=== PATIENT | male | born 1950 | race African-American/Black ===

== ENCOUNTER 2019-05-09 16:59 | Inpatient (IN) | payer MEDICARE ==
[~2019-05-09] VITALS: Ht 160 cm; Wt 69.0 kg
[2019-05-09 17:17] VITALS: Ht 160 cm; Wt 69.0 kg
--- NOTE | 2019-05-09 17:22 | NUR ---
PT BENITO FROM HOME FOR SUICIDAL IDEATION, PLACED ON A 5150 HOLD FROM [facility]. PT AAOX4, FOLLOWS SIMPLE COMMANDS BUT LIMITS TO ANSWERING QUESTIONS. STATES "I DONT WANT TO TALK, JUST LEAVE ME ALONE FOR A WHILE". PT DOES ADMIT TO TAKING UNKNOWN AMOUNT NUMBER OF PILLS TO HURT HIMSELF. PT DENIES ANY PAIN AT THIS TIME. VSS. PT PLACED IN VIEW OF NURSING STATION, IN LOBBY. SAFETY PRECAUTIONS INTIATED AND WILL CONT TO MONITOR CLOSELY.
--- NOTE | 2019-05-09 17:30 | NUR ---
PT REPORTS HE TOOK APPROX 100 PILLS OF METFORMIN, APPROX 10 PILLS OF GLIPIZIDE, AND UNKNOWN WHETHER HE TOOK LISINOPRIL APPROX 4 HRS STRIP POLISHER. ALSO STATES HE DOES NOT WANT HIS AT BEDSIDE AT THIS TIME.
--- NOTE | 2019-05-09 17:55 | NUR ---
SPOKE TO SHAWN AT POISON CONTROL, METFORNIN/GLUCOPHAGE CONCERN FOR LACTIC ACIDOSIS RECOMMENDS: LACTATE AND CHEM 20 Q6H DELAYED REACTION. OBSERVE FOR 12 HOURS. TREATMENT: FLUIDS FOR ACIDOSIS. DIALYSIS FOR SEVERE ACIDOSIS GLIPIZIDE CONCERN: HYPOGLYCEMIA RECOMMENDS: FINGER STICK Q1H X 8H TREATMENT: FOOD/DRINK/DEXTROSE FOR HYPOGLYCEMIA RECURRENT HYPOGLYCEMIA: OCTREOTIDE 50-100MCG SQ Q6-12H PRN
[2019-05-09 18:12] LABS: BASOPHIL % 0.6 % (0-2); PLATELET COUNT 236 x10^3mcL (130-400); RED CELL DISTRIBUTION WIDTH 16.1 % (11.5-14.5)
--- NOTE | 2019-05-09 18:21 | NUR ---
PT VOMITED UNDIGESTEDD FOOD, AT BEDSIDE. DR UMAÑA INFOMRED AND MEDICATED ORDERED.
[2019-05-09 18:23] LABS: ALKALINE PHOSPHATASE 63 U/L (46-116); ALT/SGPT 35 U/L (16-63); AST/SGOT 24 U/L (15-37); BILIRUBIN TOTAL 0.3 mg/dL (0.20-1.00); CALCIUM 8.5 mg/dL (8.5-10.1); CHLORIDE SERUM 109 mmol/L (98-107); CREATININE SERUM 1.1 mg/dL (0.7-1.3); GFR1 > 60 mL/min; GLUCOSE SERUM 176 mg/dL (74-106); SODIUM SERUM 144 mmol/L (136-145); TOTAL PROTEIN, SERUM 7.4 g/dL (6.4-8.2)
--- NOTE | 2019-05-09 18:48 | NUR ---
PT BACK FROM BATHROOM, STATES OKAY FOR TI BE AT BEDSIDE AT THIS TIME. VSS. IV FLUIDS INFUSAING WELL APUMP.
--- NOTE | 2019-05-09 19:13 | NUR ---
FIRST CONTACT WITH PT, PT RESTING IN BED WITH EYE CLOSED. PT RESPONDS TO VERBAL STIMULI. PT HAS NO COMPLAINTS AT THIS TIME AND IS TELLING JOKES. PT IN FULL VIEW OF NURSING STATION W/ CURTAINS OPEN. PT IS A/O X4. NO ACUTE DISTRESS NOTED.
[2019-05-09 19:28] LABS: UA SPECIFIC GRAVITY 1.015 (1.005-1.035); microscopic required? YES; urine erythrocyte NEGATIVE (NEGATIVE)
[2019-05-09 19:40] LABS: AMPHETAMINE QUAL UR NONE DETECTED (See below)
--- NOTE | 2019-05-09 19:45 | NUR ---
MARAL PTS SPOUSE LEFT HER NUMBER AT [phone] TO CONTACT HER WITH ANY UPDATES.
--- NOTE | 2019-05-09 20:25 | NUR ---
REPORT GIVEN TO JACOB MADRIGAL TO ASSUME CARE OF PT.
[2019-05-09] MEDS ORDERED: ASPIR 8181 MG PO (20:36)
[2019-05-09] MEDS ORDERED: ZESTRIL5 MG PO (20:36)
[2019-05-09] MEDS ORDERED: GLIPIZIDE10 M2 PO (20:36)
[2019-05-09] MEDS ORDERED: METFORMIN HYDR500 M1 PO (20:36)
--- NOTE | 2019-05-09 20:45 | NUR ---
REC'D PT FROM ER VIA GURNEY ACCOMPANIED BY RN AND EMT. PT AMBULATED TO ICU BED SAFELY WITH STEADY GAIT. PT A/O X4, SPEECH CLEAR AND APPROPRIATE. PERRLA NOTED. EENT FREE OF DISCHARGE. RESPS E/U ON ROOM AIR. CHEST RISE EQUAL AND SYMMETRICAL. LUNG SOUNDS DIMINISHED ROCK. DIRECTOR OF RESERVATIONS IN PLACE SHOWING NSR HR 81, BP 116/66 MAP 80. CHEST WALL STABLE. DENIES ANY CP, SYNCOPE, OR DIZZINESS. PULSES PALPABLE AND MODERATE X4 EXTREMITIES. CAP REFILL < 3 SECS. NO EDEMA NOTED. IVF D10 INFUSING @ 50ML/HR. GEN WEAKNESS NOTED. ABLE TO REPOSITION SELF. ABD DISTENDED AND SOFT. BOWEL SOUNDS ACTIVE. C/O NAUSEA AND DIARRHEA. PT VOIDS FREELY WITH URINAL. PT VOIDED 300ML PALE YELLOW URINE. DENIES ANY URINARY SYMPTOMS. NO PENILE BLEEDING/DISCHARGE. NO SCROTAL EDEMA. SKIN INTACT. WARM DRY TO TOUCH. PT ADMITTED FOR OVERDOSE FOR SUICIDAL IDEATION. DENIES ANY SUICIDAL IDEATION AT THIS TIME. CALM AND COOPERATIVE. ROOM IN CLEAR VIEW OF NURSING STATION FOR CLOSE MONITORING. ALL NEEDS MET AT THIS TIME. WILL CONTINUE TO MONITOR.
[2019-05-09 22:12] VITALS: BP 116/66
--- NOTE | 2019-05-09 22:30 | NUR ---
ELECTRICAL TRANSMISSION ENGINEER SHOWS TORSADES WITH HR ELEVATING TO 130S, LASTED ABOUT 12 SECS. PT DENIES ANY CP. PT AWAKE AND ALERT. REPORTED TO DR VILLALOBOS. ORDER GIVEN FOR STAT MAG AND CK LEVEL, STAT EKG.
[2019-05-09 23:18] VITALS: BP 97/52
--- NOTE | 2019-05-09 23:31 | NUR ---
WILLIE FROM POISON CONTROL CALLED, UPDATED ON STATUS, STATES TO ORDER BMP AND LACTIC ACID STAT AND TREND. DR VILLALOBOS MADE AWARE.
--- NOTE | 2019-05-09 23:31 | NUR ---
LAB AT BEDSIDE.
[2019-05-10 00:06] LABS: CALCIUM 7.6 mg/dL (8.5-10.1); CARBON DIOXIDE 15.7 mmol/L (21-32); CREATININE SERUM 1.5 mg/dL (0.7-1.3); MAGNESIUM 1.7 mg/dL (1.8-2.4)
--- NOTE | 2019-05-10 00:10 | NUR ---
PTS BP 88/53 MAP 62, REPORTED TO DR VILLALOBOS, ORDER GIVEN TO GIVE 500ML NS BOLUS.
[2019-05-10 00:19] LABS: POTASSIUM SERUM 6.4 mmol/L (3.5-5.1)
--- NOTE | 2019-05-10 00:19 | NUR ---
REPORTED CRITICAL LAB VALUE LACTIC ACID 12.4, K+ 6.[address] VILLALOBOS. STATES WILL INSERT REMY CATH AND ORDER STAT DIALYSIS.
--- NOTE | 2019-05-10 01:30 | NUR ---
DR VILLALOBOS AND DR SUNSHINE AT BEDSIDE FOR REMY CATH INSERTION. PROCEDURE EXPLAINED TO PT, ALL QUESTIONS AND CONCERNS ADDRESSED. PT SIGNED CONSENT. AWAITING FOR REGIONAL PRODUCTION MANAGER.
--- NOTE | 2019-05-10 01:41 | NUR ---
PT PRE-MEDICATED WITH ATIVAN AND MORPHINE IVP. ULTRASOUND AND DR VILLALOBOS, DR SUNSHINE AT BEDSIDE PREPPING FOR REMY CATH INSERTION.
--- NOTE | 2019-05-10 02:15 | NUR ---
XRAY AT BEDSIDE TO CONFIRM REMY CATH PLACEMENT.
--- NOTE | 2019-05-10 02:29 | NUR ---
DR SUNSHINE STATES REMY CATH IN PLACE, ORDER GIVEN OKAY TO USE REYM CATH.
--- NOTE | 2019-05-10 02:29 | NUR ---
ANGELA FROM [facility] CALLED AT THIS TIME, STATES RN ON THE WAY NOW.
[2019-05-10 03:02] VITALS: BP 101/57
--- NOTE | 2019-05-10 03:45 | NUR ---
DIALYSIS NURSE AT BEDSIDE.
--- NOTE | 2019-05-10 03:58 | NUR ---
BP 136/72 MAP 93, LEVOPHED TURNED OFF AT THIS TIME.
--- NOTE | 2019-05-10 04:00 | NUR ---
DIALYSIS NURSE STATES BLOOD IS NOT FLOWING THROUGH, REMY CATH NEEDS TO ADVANCED FURHTER. DR SUNSHINE CALLED AND MADE AWARE.
--- NOTE | 2019-05-10 04:15 | NUR ---
PT MADE AWARE MILLER CATHETER NEEDS TO BE PLACE FOR ACCURATE INTAKE AND OUTPUT TO MONITOR KIDNEY FUNCTION. PT REFUSED MILLER CATHETER INSERTION. DR VILLALOBOS MADE AWARE.
--- NOTE | 2019-05-10 04:15 | NUR ---
DR SUNSHINE AND DR VILLALOBOS AT BEDSIDE, ADVANCED REMY CATH FURTHER, SUTURED IN PLACE, VERBAL ORDER GIVEN TO ORDER CXR STAT AND VANCO 1GM X1. ORDER NOTED AND CARRIED OUT.
--- NOTE | 2019-05-10 04:30 | NUR ---
XRAY AT BEDSIDE.
--- NOTE | 2019-05-10 04:40 | NUR ---
DR SUNSHINE VIEWED CXRAY, CONFIRMED PLACEMENT OF REMY CATH. OKAY TO USE REMY CATH.
--- NOTE | 2019-05-10 04:45 | NUR ---
DENISE JAMES STARTED DIAYLSIS AT THIS TIME.
--- NOTE | 2019-05-10 05:02 | NUR ---
PT CURRENTLY GETTING DIALYSIS, LOCATION ANALYST RECOMMEND ABG TO BE DRAWN POST DIALYSIS, RN KAITLIN AND HOSPICE LIAISON RISSA MADE AWARE. WILL ENDORSE TO DAYSHIFT ABOUT ABG.
--- NOTE | 2019-05-10 05:48 | NUR ---
REPORTED BS [address]ILLALOBOS, ORDER GIVEN TO INCREASE D10 TO 50ML/HR.
[2019-05-10 07:15] VITALS: BP 124/70
--- NOTE | 2019-05-10 07:15 | NUR ---
PATIENT ORIENTED TO PERSON, PLACE AND TIME. PATIENT DENIES NAUSEA/VOMITING, SHORTNESS OF BREATH, OR PAIN AT THIS TIME. TELE # 8 READS SINUS TACHYCARDIA. REMY CATH TO RI WITH DRESSING INTACT; HEMODIALYSIS IS IN PROGRESS. IV SITE TO RAC AND LFA. D10 IS INFUSING AT 50ML/HR. CALL LIGHT WITHIN REACH. SIDE RAILS UP X3. BED IS AT LOWEST POSITION. ALARM IS ON.
[2019-05-10 08:32] LABS: PLATELET COUNT 156 x10^3mcL (130-400)
[2019-05-10 08:37] LABS: BASOPHIL % 0 % (0-2); RED CELL DISTRIBUTION WIDTH 16.2 % (11.5-14.5)
[2019-05-10 09:22] LABS: CALCIUM 7.4 mg/dL (8.5-10.1); CARBON DIOXIDE 30.2 mmol/L (21-32); CHLORIDE SERUM 100 mmol/L (98-107); CREATININE SERUM 1.1 mg/dL (0.7-1.3); GFR1 > 60 mL/min; GLUCOSE SERUM 78 mg/dL (74-106); PHOSPHOROUS 3.2 mg/dL (2.5-4.9); POTASSIUM SERUM 3.6 mmol/L (3.5-5.1); SODIUM SERUM 143 mmol/L (136-145)
[2019-05-10 09:28] LABS: MAGNESIUM 0.9 mg/dL (1.8-2.4)
--- NOTE | 2019-05-10 09:40 | NUR ---
DR. RICHARDSON AND THE TEAM ARE MAKING ROUND TO SEE THE PATIENT. DR. SOLITARIO WAS NOTIFIED THAT THE PATIENT'S HEMOGLOBIN LEVEL 10.1 FROM LAB DRAWN AT 0805 THIS MORNING. NO FURTHER ORDER RECEIVED AT THIS TIME.
[2019-05-10 11:25] VITALS: BP 115/65
--- NOTE | 2019-05-10 11:44 | NUR ---
POISON CONTROL STAFF-SEPTEMBER CALLED AND PATIENT'S UPDATE PROVIDED TO HER. POISON CONTROL WILL CALL BACK TOMORROW FOR UPDATE, BUT IF ANY INFORMATION NEEDED TO REPORT TO [facility]ISON [facility] PLEASE CALL [phone].
--- NOTE | 2019-05-10 13:09 | NUR ---
SPOKE WITH DR SOLITARIO AND REPORTED MAG 1.9 AND LACTIC ACID 5.8. OKAY TO INFUSE 2ND GRAM OF MAGNESIUM. ENDORSED TO PRIMARY RN KADE.
[2019-05-10 15:30] VITALS: BP 128/71
--- NOTE | 2019-05-10 18:33 | NUR ---
PATIENT IS RESTING IN BED WITH NO DISTRESS NOTED. BS WAS CHECKED EVERY HOUR ORDERED. LAST BS CHECK AT 1810 WAS 159 AFTER PATIENT HAD DINNER. PATIENT DOES NOT HAVE BM THROUGHOUT THE SHIFT.
--- NOTE | 2019-05-10 18:42 | NUR ---
RECEIVED A PHONE CALL FROM HYDRAULIC PRESS SERVICER MIK FROM [facility] FOR PATIENT'S STATUS. UPDATE PROVIDED TO MIK. SHE WANTED TO KNOW IF THE PATIENT WAS STABLE TO BE TRANSFERRED TO [facility]. HER PHONE NUMBER'S [phone].
--- NOTE | 2019-05-10 18:48 | NUR ---
DEEPTHI DAVID WAS NOTIFIED OF THE REQUEST FROM [place] OPEN CLAIMS REPRESENTATIVE. THE OPEN CLAIMS REPRESENTATIVE'S PHONE NUMBER PROVIDED TO THE DOCTOR.
--- NOTE | 2019-05-10 19:00 | NUR ---
RECIEVED REPORT FROM JACOB BRAUN. NURSING UPDATES. POC DISCUSSES. SEE SHIFT ASSESSMENT FOR ASSESSMENT.
--- NOTE | 2019-05-10 19:09 | NUR ---
REPORT GIVEN TO ZENA WILLIS RN.
[2019-05-10 19:50] VITALS: BP 125/72
--- NOTE | 2019-05-10 20:00 | NUR ---
PT DENIES SI. SEEN BY DR VITAL @ BEDSIDE. STATED" IM DEPRESSED, FEELS BAD/SED". HE PANICED SAYING "HAS A PROBLEM W/ HIMSELF." AND LOTS OF STRESS. STATES HE FEELS SAFE. DR VITAL UPDATE RECOMMEND REMAIN ON 5150 HOLD.
--- NOTE | 2019-05-10 22:34 | NUR ---
NOTIFIED DR LACEY OF MISSING S/S HUMULIN REGULAR FOR PT.
[2019-05-10 23:08] VITALS: BP 112/65
--- NOTE | 2019-05-10 23:23 | NUR ---
REMOVED PT 2L NC. PT WAS GETTING AGITATED W/ IT. PT TOLERATED WELL. NO S/S OF RESP DISTRESS. PT NOTED BREATHING "JUST FINE". WILL CONT TO MONITOR.
[2019-05-11] VITALS (9 sets, daily range): BP systolic 107–160; BP diastolic 59–82
--- NOTE | 2019-05-11 00:51 | NUR ---
BS CHECKED 146. CHECKED FOR CHANGE BS CHECKS NOT TILL 0630. NO S/S OF DISTRESS. WILL CONT TO MONITOR.
--- NOTE | 2019-05-11 02:12 | NUR ---
ASSUMED CONTINUITY OF CARE FROM LAZARO JAMES ICU NURS. PT ASLEEP AT THIS TIME. VITAL SIGNS STABLE. NO S/S OF ACUTE DISTRESS.
--- NOTE | 2019-05-11 02:16 | NUR ---
REPORT GIVEN TO JACOB HANSON. NURSING UPDATES. POC DISCUSSED. RELIEVED OF PT DUTIES.
--- NOTE | 2019-05-11 04:31 | NUR ---
USES URINAL FOR BALDDER ELIMINATION. KEPT CLEAN AND DRY. CALL LIGHT WITHIN REACH.
[2019-05-11 05:22] LABS: BASOPHIL % 0.3 % (0-2); PLATELET COUNT 139 x10^3mcL (130-400); RED CELL DISTRIBUTION WIDTH 16.3 % (11.5-14.5)
[2019-05-11 05:34] LABS: CALCIUM 7.1 mg/dL (8.5-10.1); CARBON DIOXIDE 31.2 mmol/L (21-32); CHLORIDE SERUM 104 mmol/L (98-107); CREATININE SERUM 1.2 mg/dL (0.7-1.3); GFR1 > 60 mL/min; GLUCOSE SERUM 189 mg/dL (74-106); MAGNESIUM 2.2 mg/dL (1.8-2.4); PHOSPHOROUS 2.5 mg/dL (2.5-4.9); POTASSIUM SERUM 3.2 mmol/L (3.5-5.1); SODIUM SERUM 140 mmol/L (136-145)
--- NOTE | 2019-05-11 07:10 | NUR ---
BLOOD CJQIE=[id number]/DL, HRI COVERAGE NOT GIVEN PT BADLY REFUSED, EXPALINED THE RISKS/BENEFITS BUT NO AVAIL. TRIED TO CAHNGE LINENS PT CALIMED STILL SLEEPY. WILL ENDORSE TO INCOMING SHIFT. ALL NEEDS ATTNEDED.
--- NOTE | 2019-05-11 07:25 | NUR ---
RECEIVED PT. IN BED A/A/O X3. NO SOB, NO N/V NOTED. PT. DENIES ANY PAIN AT THIS TIME. NS RUNNING AT 125 CC/HR VIA IV SITE AT L FA. IV SITE #2 NOTED TO R AC. TLC CATH. NOTED TO R NECK. PT. STATED THE TLC CATH. TO HIS R NECK WAS USED FOR HIS HEMODIALYSIS ON 05/10/19. PT. DENIES ANY SUICIDAL IDEATION AT THE PRESENT TIME. BED IN LOW POS., CALL LIGHT WITHIN REACH. SIDE RAILS UP X3.
--- NOTE | 2019-05-11 11:00 | NUR ---
IV SITE #1 TO L FA REMOVED DUE TO INFILTRATION
--- NOTE | 2019-05-11 11:30 | NUR ---
BEDSIDE BS = 176. EXPLAINED TO PT. THE NEED FOR REGULAR INSULIN COVERAGE. PT. STATED " I DON'T TAKE INSULIN."
--- NOTE | 2019-05-11 11:32 | NUR ---
RECEIVED A PHONE CALL FROM CHUCK FROM [facility]. CHUCK ASKED TO GIVE HIM AN UPDATE ON PT.'S CONDITION. UPDATE ABOUT PT.'S CONDITION GIVEN TO CHUCK. CHUCK STATED PT.'S CASE WILL BE CLOSED SINCE PT. IS STABLE.
--- NOTE | 2019-05-11 13:29 | NUR ---
IV SITE #2 TO R AC REMOVED DUE TO LEAKING. IVF NS RESUMED AT 125 CC/HR VIA PIG TAIL PORT OF REMY CATH. AT R NECK.
--- NOTE | 2019-05-11 16:04 | NUR ---
BEDSIDE B.S.= 243. ATTEMPTED TO EXPLAIN THE IMPORTANCE OF REGULAR INSULIN COVERAGE TO CONTROL BLOOD SUGAR. PT. STILL INSISTED " I DON'T NEED INSULIN. I'LL TAKE MY MEDS. WHEN I GET HOME."
--- NOTE | 2019-05-11 18:00 | NUR ---
REMAINS IN STABLE CONDITION AT THIS TIME. WILL CONTINUE TO MONITOR.
--- NOTE | 2019-05-11 18:13 | NUR ---
CALLED AND GAVE REPORT TO JACOB ENCARNACION AT DEPT. ALL QUESTIONS AND CONCERNS ADDRESSED.
--- NOTE | 2019-05-11 18:57 | NUR ---
PT. WILL BE TRANSFERRED TO 2N DEPT. WHEN THE SITTER IS AVAILABLE.
--- NOTE | 2019-05-11 19:20 | NUR ---
SPOKE WITH PATIENT'S MARAL AND INFORMED HER THAT PATIENT IS BEING TRANSFERRED TO ROOM 239A.
--- NOTE | 2019-05-11 19:27 | NUR ---
PT. IS BEING TRANSFERRED TO DEPT. (ROOM 239 A). ALL BELONGINGS SENT WITH PT. UPON TRANSFER. SITTER AT BEDSIDE.
--- NOTE | 2019-05-11 20:05 | NUR ---
RECEIVED PT FROM ICU, NO ACUTE DISTRESS. A/O X4. TELE #20 SHOWING SINUS RHYTHM, DENIES CHEST PAIN. PULSES PALPABLE IN ALL EXTREMITIES, NO EDEMA NOTED. LUNG SOUNDS CTA BILATERALLY, DENIES SOB. BOWEL SOUNDS ACTIVE, LAST BM 05/09/19. VOIDING WELL. AMY ALBERTO CATH, CDI. HD ON 05/10/19. AMBULATORY. SKIN INTACT. PT STATES FEELINGS OF DEPRESSION, DENIES THOUGHTS OF HURTING SELF, CALM AND COOPERATIVE AT THIS TIME. BED IN LOWEST POSITION, SIDE RAILS UP X2, CALL LIGHT WITHIN REACH, SITTER AT BEDSIDE. WILL CONTINUE TO MONITOR.
--- NOTE | 2019-05-11 23:02 | NUR ---
PT REFUSING 2100 INSULIN COVERAGE FOR BLOOD GLUCOSE OF 236, PT STATES HE WILL BE WILLING TO HAVE INSULIN COVERAGE IF 0630 ACCUCHECK REQUIRES. CURRENTLY RESTING IN BED, NO ACUTE DISTRESS. SITTER AT BEDSIDE. WILL CONTINUE TO MONITOR.
--- NOTE | 2019-05-12 06:26 | NUR ---
PT SLEPT PERIODICALLY THROUGHOUT NIGHT, C/O BACK PAIN 12/26, DR SUNSHINE INFORMED. NO SIGNIFICANT CHANGES. IV PATENT AND INTACT. BED IN LOWEST POSITION, SIDE RAILS UP X2, CALL LIGHT WITHIN REACH, SITTER AT BEDSIDE. WILL ENDORSE CARE TO ONCOMING NURSE.
--- NOTE | 2019-05-12 07:15 | NUR ---
RECEIVED REPORT FROM NIGHT NURSE PATIENT LYING IN BED ASLEEP BUT AROUSABLE. IJ PATENT AND INFUSING. ASSESSMENT COMPLETE. NO S/S OF RESPIRATORY DISTRESS CHEST RISE EQUAL AND UNLABORED. 98% ON RA. NO S/S OF CHEST PAIN. A%O X4 SPEECH IS CLEAR. ALL NEEDS ATTENDED TO AT THIS TIME. BED IN LOWEST POSITION CALL LIGHT WITHIN REACH. WILL CONTINUE TO MONITOR.
[2019-05-12 07:59] LABS: BASOPHIL % 0.3 % (0-2); PLATELET COUNT 131 x10^3mcL (130-400)
[2019-05-12 08:05] LABS: CALCIUM 7.2 mg/dL (8.5-10.1); CARBON DIOXIDE 23.4 mmol/L (21-32); CHLORIDE SERUM 108 mmol/L (98-107); CREATININE SERUM 0.9 mg/dL (0.7-1.3); GFR1 > 60 mL/min; GLUCOSE SERUM 208 mg/dL (74-106); MAGNESIUM 1.8 mg/dL (1.8-2.4); POTASSIUM SERUM 3.9 mmol/L (3.5-5.1); SODIUM SERUM 141 mmol/L (136-145)
[2019-05-12 08:11] LABS: RED CELL DISTRIBUTION WIDTH 16.1 % (11.5-14.5)
--- NOTE | 2019-05-12 08:58 | NUR ---
PATIENT C/O BACK PAIN 12/26 ADMINISTERED NORCO PO FOR MODERATE PAIN. PATIENT TOLERATED WELL NO ADVERSE REACTIONS NOTED. WILL REASSESS AND CONTINUE TO MONITOR. SAFETY PRECAUTIONS IN PLACE. SITTER AT BEDSIDE.
[2019-05-12 09:30] VITALS: BP 150/82
--- NOTE | 2019-05-12 10:50 | NUR ---
FAMILY CALLED JESSICA AND SHE LET ME TALK TO SHERRY THE PRINTED CIRCUIT BOARD PCB DESIGNER. SHE STATED TO FAX THE ORDER FAX NO.[phone] AND [email or web address] TO CALL [phone].
--- NOTE | 2019-05-12 12:45 | NUR ---
PATIENT SITTING UP IN BED EATING LUNCH TOLERATING DIET WELL. FAMILY AT BEDSIDE. PATIENT DENIES ANY PAIN AT THIS TIME. CALL LIGHT WITHIN REACH BED IN LOWEST POSITION. SITTER AT BEDSIDE. WILL CONTINUE TO MONITOR.
--- NOTE | 2019-05-12 14:00 | NUR ---
CALLED TO MERRICK MULTANI TO VERIFY IF OK TO FAX THE ORDER .SHE STATED IT'S OKAY TO FAX AND ALSO THE CLINICAL INFORMATION. 1430 TALKED TO THE FAMILY AND UPDATED THE PLAN.
[2019-05-12 16:14] VITALS: BP 144/87
--- NOTE | 2019-05-12 16:59 | NUR ---
PATIENT GLUCOSE 167 PATIENT REFUSED INSULIN EDUCATED PATIENT. PT STATED "I DONT WANT INSULIN" ALL QUESTIONS AND CONCERNS ADDRESSED. SAETY PRECAUTIONS IN PLACE. WILL CONTINUE TO MONITOR.
--- NOTE | 2019-05-12 18:51 | NUR ---
PATIENT SITTING IN BED TALKING WITH FAMILY AT BEDSIDE. SKIN TEAR ON PATIENT BACK CLEANED AND APPLIED A BANDAID PICTURE IN CHART. PATIENT DENIES ANY PAIN. ALL NEEDS ATTNDED TO AT THIS TIME. BED IN LOWEST POSITION AND CALL LIGHT IS WITHIN REACH. WILL ENDORSE CARE TO CRANBERRY GROWER NURSE.
--- NOTE | 2019-05-12 20:00 | NUR ---
PT A/A/O X4, VISITOR AT BEDSIDE. PT DENIES DIZZINESS AND HEADACHE. BREATH SOUNDS CLEAR. BREATHING EVEN AND UNLABORED ON ROOM AIR. DENIES CHEST PAIN AND PRESSURE. BOWEL SOUNDS ACTIVE. NO C/O N/V AND ABDOMINAL PAIN. MADE PT COMFORTABLE. PLACED CALL LIGHT WITH IN REACH. WILL CONTINUE TO MONITOR.
[2019-05-12 20:28] VITALS: BP 141/76
--- NOTE | 2019-05-12 23:59 | NUR ---
PT RESFUSED INSULIN COVERAGE. PT SAID NO WHEN ASKED IF HE IS THINKING OF HARMING HIMSELF. MADE PT COMFORTABLE. PLACED CALL LIGHT WITH IN REACH. WILL CONTINUE TO MONITOR.
[2019-05-13] VITALS (7 sets, daily range): BP systolic 106–160; BP diastolic 63–91
--- NOTE | 2019-05-13 06:10 | NUR ---
PT RESTING WITH EYES CLOSED. EASILY AROUSABLE WITH VERBAL STIMULI. NO SIGNIFICANT CHANGES NOTED. MADE PT COMFORTABLE. WILL ENDORSE TO THE AM NURSE ACCORDINGLY.
--- NOTE | 2019-05-13 08:01 | NUR ---
RECEIVED PT FROM JACOB WORRELL. PT AA/IBRAHIMA LAYING IN BED. NO S/S OF ACUTE DISTRESS. NO SOB ON ROOM AIR. DENIES PAIN AT THIS TIME. NO N/V. NO CHEST PAIN. MED SURG. NO IV ACCESS. REFUSES IV THERAPY. SITTER PAOLA AT BEDSIDE FOR SUICIDAL IDEATION. STOOL CULTURE COLLECTED. TO BE SENT TO LAB AT THIS TIME. BED IN LOW POSITION. CALL LIGHT WITHIN REACH. INSTRUCTED TO USE CALL LIGHT TO CALL FOR ASSISTANCE PRN. PT VERBALIZED UNDERSTANDING. CALM AT THIS TIME. WILL CONT TO MONITOR.
--- NOTE | 2019-05-13 13:47 | NUR ---
BP 155/84. TRENDING DOWN. NO S/S OF ACUTE DISTRESS. AA/OX4. NO SOB ON ROOM AIR. NO CHEST PAIN. NO ROBIN. NO DIZZINESS. CALM AT THIS TIME. CONTINUES TO REFUSE IV THERAPY. NO IV ACCESS. SITTER AT BEDSIDE. BED IN LOW POSITION. CALL LIGHT WITHIN REACH. WILL ENDORSE TO ONCOMING SHIFT.
--- NOTE | 2019-05-13 18:12 | NUR ---
BP STABLE. NO S/S OF ACUTE DISTRESS. NO CHEST PAIN. NO N/V. NO SOB ON ROOM AIR. NO ROBIN. NO DIZZINESS. AA/OX4. CALM AT THIS TIME. REFUSES IV THERAPY AT THIS TIME. AA/OX4. BED IN LOW POSITION. CALL LIGHT WITHIN REACH. SITTER AT BEDSIDE. WILL ENDORSE TO ONCOMING SHIFT.
--- NOTE | 2019-05-13 19:52 | NUR ---
AWAKE AND ALERT, ORIENTED TO NAME, PLACE, TIME AND SITUATION. SPEECH CLEAR AND APPROPRIATE. BREATHING EVEN AND UNLABORED ON ROOM AIR. NO IV ACCESS, PT HAS BEEN REFUSING, PHYSICIANS AWARE. CALM. SITTER IN ROOM.
--- NOTE | 2019-05-13 23:39 | NUR ---
EYES CLOSED, LAYING ON HIS LEFT SIDE. BREATHING EVEN AND UNLABORED ON ROOM AIR. CALL LIGHT WITHIN EASY REACH. SITTER IN ROOM.
--- NOTE | 2019-05-14 01:12 | NUR ---
EYES CLOSED, BREATHING EVEN AND UNLABORED. CALL LIGHT WITHIN EASY REACH. SITTER SYLVIE IN ROOM.
--- NOTE | 2019-05-14 02:53 | NUR ---
EYES CLOSED, BREATHING EVEN AND UNLABORED ON ROOM AIR. CALL LIGHT WITHIN EASY REACH. SITTER IN ROOM.
[2019-05-14 04:39] VITALS: BP 147/76
--- NOTE | 2019-05-14 06:24 | NUR ---
EYES CLOSED, EASILY AWAKENED. BREATHING EVEN AND UNLABORED. SITTER IN ROOM
--- NOTE | 2019-05-14 07:09 | NUR ---
eyes closed, breathing unlabored. in no acute distress. endorsed to nurse jefe
[2019-05-14 07:12] VITALS: BP 144/80
[2019-05-14 07:15] VITALS: BP 144/80
--- NOTE | 2019-05-14 07:15 | NUR ---
PT RESTING IN BED W/ BOTH EYES CLOSED. EASILY AROUSABLE TO VERBAL STIMULI. NO S/S OF ACUTE DISTRESS. NO SOB ON ROOM AIR. NO C/O PAIN. NO CHEST PAIN. REFUSES IV THERAPY/NO IV ACCESS. SITTER AT BEDSIDE. NO VERBALIZATION OF SUICIDAL IDEATION AT THIS TIME. CALM. BED IN LOW POSITION. CALL LIGHT WITHIN REACH. WILL CONT. TO MONITOR.
--- NOTE | 2019-05-14 11:15 | NUR ---
BP 169/98, HR 110. DENIES ROBIN. NO DIZZINESS. NO S/S OF ACUTE DISTRESS. NO CHEST PAIN. AA/OX4. FACE SYMMETRICAL, SPEECH CLEAR. LAYING IN BED. TO BE GIVEN PO BP MED BY STUDENT W/ INSTRUCTOR SUPERVISION. BED IN LOW POSITION. CALL LIGHT WITHIN REACH. WILL CONT. TO MONITOR.
[2019-05-14 12:50] VITALS: BP 161/87
[2019-05-14 13:01] VITALS: BP 161/87
--- NOTE | 2019-05-14 13:44 | NUR ---
PT DISCHARGED TO HOME. AWAKE, ALERT, ORIENTED X4. NO S/S OF ACUTE DISTRESS. DENIES SUICIDAL IDEATION. CALM/COOPERATIVE. NO SOB ON ROOM AIR. NO CHEST PAIN. BP TRENDING DOWN. CARPENTER ASSEMBLER MORE AWARE OF CURRENT BP, OKAY TO SEND HOME. NO ROBIN. NO DIZZINESS. NO N/V. DISCHARGE EDUCATION PROVIDED TO PATIENT. INSTRUCTED TO MAKE FOLLOW UP APPT TO BE SEEN WITHIN 2-3 DAYS. PT VERBALIZED UNDERSTANDING. BELONGINGS WITH PATIENT. PRESCRIPTION WITH PATIENT. AMBULATORY WITH FULL ROM GAIT STEADY. TAKEN TO DISCHARGE LOBBY BY JACOB HE.
== END 2019-05-14 13:45 | disposition home or self-care (01) | DRG 917 ==
LOC: ED 16:59 → IC 20:10 → MU 20:10 → IC 21:08 → DU 05-11 17:00 → IC 05-11 17:03 → DU 05-11 19:30 → MU 05-12 10:21
PROVIDERS: Emergency Medicine; ADMIT General Practice
PROC: 05HM33Z Insertion of Infusion Device into Right Internal Jugular Vein, Percutaneous Approach (ICD-10-PCS; principal; 2019-05-10)
DX: T38.3X1A Poisoning by insulin and oral hypoglycemic [antidiabetic] drugs, accidental (unintentional), initial encounter (principal); G92 Toxic encephalopathy; N17.9 Acute kidney failure, unspecified; E87.2 Acidosis; F33.2 Major depressive disorder, recurrent severe without psychotic features; E83.42 Hypomagnesemia; E11.649 Type 2 diabetes mellitus with hypoglycemia without coma; E11.65 Type 2 diabetes mellitus with hyperglycemia; F10.129 Alcohol abuse with intoxication, unspecified; E87.5 Hyperkalemia; E83.51 Hypocalcemia; E78.5 Hyperlipidemia, unspecified; Y92.89 Other specified places as the place of occurrence of the external cause; Y90.0 Blood alcohol level of less than 20 mg/100 ml; Z68.25 Body mass index [BMI] 25.0-25.9, adult; Z79.84 Long term (current) use of oral hypoglycemic drugs
CPT/HCPCS: 36600; 82962; 87046; 87046-59; 94150; G0378; G0480; J1170; J1642; J1644; J2001; J2060; J2405; J2765; J3370; J3475; J3490; J7030; J7040; J7050; P9047; Q0092